=== PATIENT | female | born 1985 | race Caucasian/White ===

== ENCOUNTER 2019-02-25 05:38 | Inpatient (IN) | payer OTHER ==
[~2019-02-25 05:38] MED LIST: Buffered Lidocaine 1% SYRIN* 1 ML/SYRINGE INTRADERM ONE
[2019-02-25] MEDS ORDERED: Lactated Ringers 1000 ML Bag* 1,000 ML IV SCH ×2 (06:00→10:00)
[2019-02-25] MEDS ORDERED: Famotidine IV* 10 MG/ML 2 ML (20 mg) IV ONE (06:00)
[2019-02-25] MEDS ORDERED: ceFOXitin 2 GM IVPREMIX* 2 GM/50 ML BAG ONE (07:19)
[2019-02-25] MEDS ORDERED: fentaNYL* 50 MCG/ML 2 ML VIAL (100 MCG VIAL) ONE (07:53)
[2019-02-25] MEDS ORDERED: Morphine PF AMP (0.5MG/ML)* 5 MG/10 ML AMP ONE (07:53)
[2019-02-25] MEDS ORDERED: KETAMINE HCL* 50 MG/ML 10 ML VIAL ONE (07:53)
[2019-02-25] MEDS ORDERED: Midazolam* 1 MG/ML 5 ML VIAL (5 MG) ONE (07:53)
[2019-02-25] MEDS ORDERED: Naloxone* 2 MG in NS 0.9% 250 ML* 250 ML IV PRN (08:27)
[2019-02-25] MEDS ORDERED: Naloxone* 0.4 MG/ML 1 ML VIAL IV PRN ×2 (08:27→08:29)
[2019-02-25] MEDS ORDERED: Nalbuphine* 10 MG/ML 1 ML VIAL IV PRN (08:27)
[2019-02-25] MEDS ORDERED: DiMENhydriNATE IV* 50 MG/ML VIAL IV PUSH PRN (08:27)
[2019-02-25] MEDS ORDERED: oxyCODONE/Acetamin 5/325 MG* TAB PO PRN ×3 (08:27→23:59)
[2019-02-25] MEDS ORDERED: PROCHLORPERAZINE INJ 5 MG/ML 2 ML VIAL IV PRN (08:27)
[2019-02-25] MEDS ORDERED: Ondansetron INJ* 2 MG/ML VIAL IV PRN (08:27)
[2019-02-25] MEDS ORDERED: fentaNYL* 50 MCG/ML 2 ML VIAL (100 MCG VIAL) IV PRN (08:29)
[2019-02-25] MEDS ORDERED: Scopolamine 1.5 mg* PATCH ONE (08:57)
[2019-02-25] MEDS ORDERED: Phenylephrine 40 MCG/ML SYRINGE ONE (08:57)
[2019-02-25] MEDS ORDERED: OXYTOCIN* 10 UNITS/ML 1 ML VIAL ONE (08:58)
[2019-02-25] MEDS ORDERED: Dexamethasone IV* 4 MG/ML 1 ML (4 MG) ONE (08:58)
[2019-02-25] MEDS ORDERED: Ondansetron INJ* 2 MG/ML VIAL ONE (08:58)
[2019-02-25] MEDS ORDERED: EPHEDrine (Pressors)* 50 MG/ML VIAL ONE (08:58)
[2019-02-25] MEDS ORDERED: Ketorolac INJ* 30 MG/ML 1 ML VIAL ONE (08:58)
[2019-02-25] MEDS ORDERED: Dibucaine 1% 28.35 GM TUBE PR PRN (09:32)
[2019-02-25] MEDS ORDERED: Witch Hazel PAD* JAR TOPICAL PRN (09:32)
[2019-02-25] MEDS ORDERED: Glycerin ADULT SUPP PR PRN (09:32)
[2019-02-25] MEDS ORDERED: Oxytocin in LR* 20 UNITS/1,000 ML BAG IVPB SCH (10:00)
[2019-02-25] MEDS: Simethicone TAB* 80 MG TAB.CHEW PO SCH ×3 (12:54→20:58)
[2019-02-25] MEDS: Docusate CAP* 100 MG PO SCH ×2 (12:54→20:58)
[2019-02-25] MEDS: Ketorolac INJ* 30 MG/ML 1 ML VIAL IV PRN ×2 (15:26→21:47)
[2019-02-25] MEDS: Acetaminophen TAB* 325 MG PO PRN (20:58)
[2019-02-25] MEDS ORDERED: Zolpidem TAB* 5 MG PO PRN (23:59)
[2019-02-26] MEDS: Acetaminophen TAB* 325 MG PO PRN ×4 (01:20→20:23)
--- NOTE | 2019-02-26 03:34 | OP ---
DATE OF OPERATION: 02/25/19 - ROOM #117 DATE OF : 87 SURGEON: Codey Herrmann MD [address] SERVICE: Chacha Baker CNM ANESTHESIA: Spinal. PRE-OP DIAGNOSIS: Previous section. POST-OP DIAGNOSIS: Previous section. OPERATIVE PROCEDURE: Low transverse section. ESTIMATED BLOOD LOSS: 800 cc. SPECIMEN: Includes placenta. FLUIDS: Include 3000 cc of crystalloid. FINDINGS: Viable male. Apgars were 9 and 9. The weight was 7 pounds 12 ounces. Normal appearing uterus, fallopian tubes, and ovaries. DESCRIPTION OF PROCEDURE: The patient identified, procedure identified as a low transverse section. The patient was taken to the operating room, prepped and draped in the usual fashion in the left lateral recumbent position under spinal anesthesia. A Pfannenstiel incision was made through the old incision and carried down through fat, fascia, and peritoneum. A bladder flap was created via sharp and blunt dissection. A transverse incision was made in the lower uterine segment, extended laterally using blunt dissection. The above infant was brought into the incision. There was lots of fluids and it was difficult to get pressure on the infant because of the amount of fluid. The vacuum was applied and with the easy pull, the infant was delivered. The cord was doubly clamped and cut. The was handed to the waiting data input clerk. Cord blood was obtained. Placenta delivered manually. Uterus was wiped out with a wet lap sponge. The uterus was brought out through the abdominal incision and the 0-Vicryl suture was used to close the incision. A second layer of 0-Vicryl was used to imbricate the first layer. Good hemostasis was verified. The uterus placed back in the abdominal cavity. [id number] 0-Vicryl suture was used to provide good hemostasis. This was wiped out with a wet lap sponge. The peritoneum was then closed using 3-0 Polysorb in a running fashion. Good hemostasis achieved in the subrectus layers. Some bleeding was noted and the peritoneum was reopened. The uterine incision was then reinspected and found to be hemostatic and the peritoneum was reclosed using 3- 0 Vicryl. Bleeders along the rectus muscle on the right side were also ligated using 3-0 Vicryl. Good hemostasis was verified in the subrectus layers. The fascia was closed with 0-Polysorb in a running fashion. Hemostasis was achieved in the subcu. Copious irrigation was utilized and suctioned out. The deep space was closed using 3-0 Vicryl in a simple fashion and the skin was closed with 4-0 Monocryl in a subcuticular fashion and Steri- Strips were applied. All sponge and instrument counts were correct, and the patient returned to recovery room in a stable condition. [id number]/[facility] #: [id number] [facility]PITALJessica
[2019-02-26] MEDS: Ibuprofen TAB* 600 MG PO PRN ×4 (03:46→22:08)
[2019-02-26 08:13] LABS: ABS Basophils 0.1 10^3/ul (0-0.2); ABS Eosinophils 0.1 10^3/ul (0-0.6); ABS Lymphocytes 1.7 10^3/ul (1.0-4.8); ABS Monocytes 0.9 10^3/ul (0-0.8); ABS Neutrophils 7.1 10^3/ul (1.5-7.7); Eosinophil % 1.3 %; Hematocrit 24 % (35-47); Hemoglobin 8.2 g/dL (12.0-16.0); Lymphocyte % 17.5 %; Mean Corpuscular HGB Conc 34 g/dL (31-36); Mean Corpuscular Hemoglobin 29 pg (27-31); Mean Corpuscular Volume 84 fL (80-97); Mean Platelet Volume 8.5 fL (7.4-10.4); Platelet Count 193 10^3/uL (150-450); Red Blood Count 2.85 10^6 /uL (3.70-4.87); Red Cell Distribution Width 14 % (10-15)
[2019-02-26] MEDS: Ferrous Gluconate TAB* 324 MG TAB PO SCH ×2 (08:45→21:20)
[2019-02-26] MEDS: Simethicone TAB* 80 MG TAB.CHEW PO SCH ×4 (08:46→21:20)
[2019-02-26] MEDS: Docusate CAP* 100 MG PO SCH ×3 (08:46→21:20)
[2019-02-26] MEDS ORDERED: Pneumococcal *Vac Polyvalent 0.5 ML VIAL IM ONE (13:00)
[2019-02-27] MEDS: Acetaminophen TAB* 325 MG PO PRN ×5 (00:21→21:45)
[2019-02-27] MEDS: Ibuprofen TAB* 600 MG PO PRN ×3 (04:24→19:34)
[2019-02-27] MEDS: Simethicone TAB* 80 MG TAB.CHEW PO SCH ×3 (08:41→19:34)
[2019-02-27] MEDS: Docusate CAP* 100 MG PO SCH ×3 (08:41→19:34)
[2019-02-27] MEDS: Ferrous Gluconate TAB* 324 MG TAB PO SCH ×2 (08:41→19:34)
[2019-02-28] MEDS: Ibuprofen TAB* 600 MG PO PRN ×2 (01:35→08:00)
[2019-02-28] MEDS: Acetaminophen TAB* 325 MG PO PRN ×2 (01:36→05:41)
[2019-02-28] MEDS: Docusate CAP* 100 MG PO SCH (08:00)
[2019-02-28] MEDS: Ferrous Gluconate TAB* 324 MG TAB PO SCH (08:00)
[2019-02-28] MEDS: Simethicone TAB* 80 MG TAB.CHEW PO SCH (08:00)
[2019-02-28] MEDS ORDERED: Scopolamine PATCH Remove* 1 NOTE MISC PATCH OFF PRN (08:28)
[2019-02-28 08:42] VITALS: BP 112/74
== END 2019-02-28 10:35 | disposition home or self-care (01) | DRG 788 ==
LOC: MCHOB 05:38
PROVIDERS: ADMIT Obstetrics & Gynecology; ATTEND Obstetrics & Gynecology
PROC: 10D00Z1 Extraction of Products of Conception, Low, Open Approach (ICD-10-PCS; principal; 2019-02-25 07:45)
DX: O34.211 Maternal care for low transverse scar from previous cesarean delivery (principal); O99.52 Diseases of the respiratory system complicating childbirth; J45.909 Unspecified asthma, uncomplicated; O90.81 Anemia of the puerperium; D64.9 Anemia, unspecified; Z3A.39 39 weeks gestation of pregnancy; Z37.0 Single live birth
CPT/HCPCS: 36415; 85025; 90732; A9270-GY; J0694; J1100; J1885; J2250; J2405; J2590; J3010

== ENCOUNTER 2021-07-05 05:54 | Inpatient (IN) ==
[2021-07-05] MEDS ORDERED: ceFOXitin 2 GM PREMIX 50 ML IVPB ONE (06:10)
[2021-07-05] MEDS ORDERED: Buffered Lidocaine 1% SYRIN 1 ml INTRADERM ONE (06:48)
[2021-07-05] MEDS ORDERED: Ondansetron 4 mg VIAL 2 MG/ML 2 ml VIAL IV PRN (06:48)
[2021-07-05] MEDS ORDERED: Naloxone 0.4 mg VIAL 0.4 mg/ml 1 ml VIAL IV PRN (06:48)
[2021-07-05] MEDS ORDERED: Sodium Citrate/Citric Acid LIQ 15 ML UDC PO ONE (06:48)
[2021-07-05] MEDS ORDERED: Naloxone 4 mg VIAL (10 ml) 2 MG in NS 0.9% 250 ml 250 ML IV PRN (06:48)
[2021-07-05] MEDS ORDERED: Metoclopramide 5 MG/ML VIAL (10 mg) IV PRN (06:48)
[2021-07-05] MEDS ORDERED: DiMENhydriNATE IV 50 mg/ml 1 ml VIAL IV PUSH PRN (06:48)
[2021-07-05] MEDS ORDERED: Lactated Ringers 1000 ml BAG 1,000 ML IV SCH ×2 (07:00→10:00)
[2021-07-05 07:06] LABS: Urine Benzodiazepine Screen None Detected (None Detect); Urine Opiates Screen None Detected (None Detect)
[2021-07-05] MEDS ORDERED: Morphine PF AMP (0.5MG/ML) 5 MG/10 ML AMP ONE (07:26)
[2021-07-05 07:48] LABS: Rapid COVID-19 Molecular Undetected (Undetected)
[2021-07-05] MEDS ORDERED: Oxytocin 10 UNITS/ML 1 ML VIAL ONE (08:12)
[2021-07-05] MEDS ORDERED: Dexamethasone IV 4 MG/ML VIAL 1 ml VIAL ONE (08:47)
[2021-07-05] MEDS ORDERED: Ondansetron 4 mg VIAL 2 MG/ML 2 ml VIAL ONE (08:47)
[2021-07-05] MEDS ORDERED: Witch Hazel PAD JAR TOPICAL PRN (09:26)
[2021-07-05] MEDS ORDERED: Dibucaine 1% OINT 28.35 GM TUBE PR PRN (09:26)
[2021-07-05] MEDS ORDERED: Glycerin ADULT 2.4 gm SUPP PR PRN (09:26)
[2021-07-05 09:44] LABS: Urine Appearance Clear; Urine Bilirubin Negative (Negative); Urine Blood Negative (Negative); Urine Color Straw; Urine Glucose Negative (Negative); Urine Ketones Negative (Negative); Urine Nitrite Negative (Negative); Urine Protein Negative (Negative); Urine Specific Gravity 1.009 (1.002-1.030); Urine Urobilinogen Negative (Negative)
[2021-07-05] MEDS ORDERED: Oxytocin in LR 20 UNITS/1,000 ML BAG IVPB SCH (10:00)
[2021-07-06 07:09] LABS: ABS Eosinophils 0.2 10^3/ul (0-0.6); ABS Lymphocytes 1.9 10^3/ul (1.0-4.8); ABS Neutrophils 7.7 10^3/ul (1.5-7.7); Eosinophil % 1.9 %; Hematocrit 28 % (35-47); Hemoglobin 9.7 g/dL (12.0-16.0); Lymphocyte % 17.5 %; Mean Corpuscular HGB Conc 34 g/dL (31-36); Mean Corpuscular Hemoglobin 29 pg (27-31); Mean Corpuscular Volume 86 fL (80-97); Mean Platelet Volume 8.1 fL (7.4-10.4); Platelet Count 204 10^3/uL (150-450); Red Blood Count 3.31 10^6 /uL (3.70-4.87); Red Cell Distribution Width 14 % (10-15); White Blood Count 10.8 10^3/uL (3.5-10.8)
[2021-07-06] MEDS ORDERED: Tetan/Diph/Pertus SYR(Tdap) 0.5 ML SYR(BOOSTRIX) use SYR contains LATEX IM ONE (09:00)
[2021-07-08 07:54] VITALS: BP 120/82
== END 2021-07-08 11:13 | disposition home or self-care (01) | DRG 784 ==
LOC: MCHOB 05:54
PROVIDERS: ADMIT Obstetrics & Gynecology; ATTEND Obstetrics & Gynecology